=== PATIENT | female | born 1960 | race African-American/Black ===

== ENCOUNTER 2024-08-23 23:40 | Emergency (ER) | payer OTHER ==
[~2024-08-23] VITALS: Ht 160 cm; Wt 117.0 kg
[2024-08-23] MEDS ORDERED: ALBUTEROL/IPRATROPIUM 3 ML NEB INH ONE (23:45)
[2024-08-23] MEDS ORDERED: ELIQUIS5 MG PO (23:54)
[2024-08-24] LABS: BASOPHILS 0.3 % (0.1-1.2); EOSINOPHILS 1.8 % (0.7-5.8); HEMATOCRIT 30.4 % (34.1-44.9); HEMOGLOBIN 9.4 g/dL (11.2-15.7); LYMPHOCYTES 41.4 % (19.3-51.7); MCH 24.7 PG (25.6-32.2); MCHC 30.9 g/dL (32.2-35.5); MCV 79.8 fL (79.4-94.8); MONOCYTES 4.8 % (4.7-12.5); NEUTROPHILS 51.5 % (34.0-71.1); PLATELET COUNT 392 K/uL (182-369); RBC 3.81 M/uL (3.93-5.22)
[2024-08-24 00:27] LABS: ALBUMIN 3.5 g/dL (3.4-5.0); ALBUMIN/GLOBULIN RATIO 0.73 (1.1-2.4); BILIRUBIN, TOTAL 0.2 mg/dL (0.2-1.0); BUN/CREATININE RATIO 10.86 (6.0-28.6); CALCIUM 9.2 mg/dL (8.5-10.1); CREATININE, SERUM 1.38 mg/dL (0.55-1.02); MAGNESIUM 2.1 mg/dL (1.8-2.4); PROTEIN, TOTAL 8.3 g/dL (6.4-8.2)
[2024-08-24] MEDS ORDERED: hydrALAZINE HCL 20 MG/ML VIAL IV ONE (01:30)
[2024-08-24] MEDS ORDERED: ALBUTEROL SULFATE 8 GM HOME.PACK INH ONE (02:15)
[2024-08-24] MEDS ORDERED: HYDROCHLOROTHIA25 MG PO (02:19)
[2024-08-24 02:38] VITALS: BP 178/68
--- NOTE | 2024-08-26 12:12 | EKG ---
[facility] [address] [facility] [place], [place] [address] Signed Normal sinus rhythm Nonspecific T wave abnormality Abnormal ECG Confirmed by Pavel Lea DO ([id number]) on 08/26/2024 12:11:57 PM Electronically Signed By: PAVEL LEA DO 08/26/24 1212 PATIENT NAME: CHESTER LEDBETTER Electrocardiogram DATE OF : 64 PHYSICIAN: PAVEL LEA DO REPORT #: [id number] REPORT IS CONFIDENTIAL AND NOT TO BE RELEASED WITHOUT AUTHORIZATION
== END 2024-08-24 02:41 | disposition home or self-care (01) ==
LOC: ED 23:40
PROVIDERS: Internal Medicine
DX: J45.909 Unspecified asthma, uncomplicated (principal); I10 Essential (primary) hypertension; Z79.899 Other long term (current) drug therapy
CPT/HCPCS: 36415; 71045; 80053; 83735; 83880; 84484; 85025; 93005; 93010; 94640; 94664; 96374; 99285-25; J0360